=== PATIENT | male | born 1935 | race Caucasian/White ===

== ENCOUNTER → 2024-11-14 09:07 | Outpatient (REF) | payer MEDICARE, BC, SELFPAY ==
[2024-11-14 11:45] LABS: % Basophils 0.5 % (0-2); % Eosinophils 2.9 % (0-6); % Immature Granulocytes 1.8 % (0-0.5); % Lymphocytes 23.8 % (20.5-51.1); % Monocytes 12.5 % (1.7-9.3); % Neutrophils 58.5 % (42.2-75.2); Absolute Basophils 0.1 10^3/uL (0-0.2); Absolute Eosinophils 0.3 10^3/uL (0-0.7); Absolute Immature Granulocytes 0.2 10^3/uL (0-0.05); Absolute Lymphocytes 2.7 10^3/uL (1.2-3.4); Absolute Monocytes 1.4 10^3/uL (0.1-0.6); Absolute Neutrophils 6.7 10^3/uL (1.4-6.5); Hematocrit 44.3 % (39.0-52.0); Hemoglobin 14.2 g/dL (13.0-18.0); Mean Corp Hgb Conc. 32.1 g/dL (33.0-37.0); Mean Corpuscular Hgb 31.2 pg (27.0-31.0); Mean Corpuscular Volume 97.4 fL (80.0-94.0); Mean Platelet Volume 12.3 fL (7.4-10.4); Nucleated Red Blood Cells % 0 % (-); Platelet Count 188 10^3/uL (130-400); Red Blood Cell Count 4.55 10^6/uL (4.70-6.10); Red Cell Dist. Width 17.2 % (11.5-14.5); White Blood Cell Count 11.4 10^3/uL (4.8-10.8)
[2024-11-14 12:03] LABS: ALT (SGPT) < 10 U/L (0-50); AST (SGOT) 15 U/L (17-59); Albumin 3.6 g/dl (3.5-5.0); Alkaline Phosphatase 127 U/L (38-126); Blood Urea Nitrogen 66 mg/dl (9-20); Calcium 10.8 mg/dl (8.4-10.2); Carbon Dioxide 22 mmol/L (22-30); Chloride 107 mmol/L (98-107); Glucose 139 mg/dl (70-99); Magnesium 2.1 mg/dl (1.6-2.3); Potassium 4.8 mmol/L (3.5-5.1); Sodium 142 mmol/L (135-145); Total Bilirubin 1.5 mg/dl (0.2-1.3)
[2024-11-14 12:04] LABS: Vitamin D, 25-OH*** 68.3 ng/mL (30-80)
[2024-11-14 12:37] LABS: Vitamin B12 > 1000 pg/ml (239-931)
[2024-11-14 13:53] LABS: Glycohemoglobin (HgbA1c) 6.8 % (4.0-5.6)
== END ==
LOC: OLABN 09:07
PROVIDERS: ATTENDING PHYSICIAN Student in an Organized Health Care Education/Training Program
DX: D50.9 Iron deficiency anemia, unspecified (principal); N18.31 Chronic kidney disease, stage 3a; E11.40 Type 2 diabetes mellitus with diabetic neuropathy, unspecified; E55.9 Vitamin D deficiency, unspecified; E53.8 Deficiency of other specified B group vitamins; E11.21 Type 2 diabetes mellitus with diabetic nephropathy
CPT/HCPCS: 36415; 80053; 82306; 82607; 83036; 83735; 85025

== ENCOUNTER → 2024-11-15 17:00 | Outpatient (REF) | payer BC, OTHER, SELFPAY ==
[2024-11-16 13:09] LABS: Urine Albumin 3+ (Neg - Trace); Urine Bilirubin Negative (Negative); Urine Character Slightly Cloudy (Clear); Urine Color Yellow; Urine Glucose Negative (Negative); Urine Ketone Negative (Negative); Urine Leukocyte 3+ (Negative); Urine Nitrite Positive (Negative); Urine Occult Blood 4+ (Negative); Urine Specific Gravity 1.015 (<1.030); Urine Urobilinogen 1+ (Neg - 1+)
[2024-11-16 13:25] LABS: Urine Mucus Few; Urine Squamous Cell 16-20 /LPF (Few)
[2024-11-16 13:26] LABS: Urine Bacteria Moderate (Negative); Urine Calcium Oxalate Crystals Present; Urine White Cell 60-70 /HPF (0-5)
== END ==
LOC: OLABN 17:00
PROVIDERS: ATTENDING PHYSICIAN Student in an Organized Health Care Education/Training Program
DX: N39.0 Urinary tract infection, site not specified (principal)
CPT/HCPCS: 81003; 81015; 87077; 87086

== ENCOUNTER → 2024-11-19 09:27 | Outpatient (REF) | payer BC, OTHER, SELFPAY ==
[2024-11-19 10:01] LABS: % Basophils 0.4 % (0-2); % Eosinophils 3.9 % (0-6); % Immature Granulocytes 1.4 % (0-0.5); % Lymphocytes 30.3 % (20.5-51.1); % Monocytes 12.4 % (1.7-9.3); % Neutrophils 51.6 % (42.2-75.2); Absolute Eosinophils 0.4 10^3/uL (0-0.7); Absolute Immature Granulocytes 0.1 10^3/uL (0-0.05); Absolute Lymphocytes 2.9 10^3/uL (1.2-3.4); Absolute Monocytes 1.2 10^3/uL (0.1-0.6); Absolute Neutrophils 4.9 10^3/uL (1.4-6.5); Hemoglobin 14.4 g/dL (13.0-18.0); Mean Corp Hgb Conc. 32.7 g/dL (33.0-37.0); Mean Corpuscular Hgb 31.3 pg (27.0-31.0); Mean Corpuscular Volume 95.7 fL (80.0-94.0); Mean Platelet Volume 11.9 fL (7.4-10.4); Nucleated Red Blood Cells % 0 % (-); Platelet Count 154 10^3/uL (130-400); Red Cell Dist. Width 16.9 % (11.5-14.5); White Blood Cell Count 9.5 10^3/uL (4.8-10.8)
[2024-11-19 10:32] LABS: Blood Urea Nitrogen 72 mg/dl (9-20); Calcium 11.4 mg/dl (8.4-10.2); Carbon Dioxide 19 mmol/L (22-30); Chloride 107 mmol/L (98-107); Glucose 118 mg/dl (70-99); Potassium 4.9 mmol/L (3.5-5.1); Sodium 139 mmol/L (135-145); eGFR 17.39
== END ==
LOC: OLABN 09:27
PROVIDERS: ATTENDING PHYSICIAN Student in an Organized Health Care Education/Training Program
DX: D72.820 Lymphocytosis (symptomatic) (principal)
CPT/HCPCS: 36415; 80048; 85025

== ENCOUNTER → 2024-11-21 09:56 | Outpatient (REF) | payer OTHER, SELFPAY ==
[2024-11-21 11:55] LABS: Blood Urea Nitrogen 58 mg/dl (9-20); Calcium 10.3 mg/dl (8.4-10.2); Carbon Dioxide 19 mmol/L (22-30); Chloride 112 mmol/L (98-107); Glucose 98 mg/dl (70-99); Potassium 4.7 mmol/L (3.5-5.1); Sodium 140 mmol/L (135-145); eGFR 23.14
== END ==
LOC: OLABN 09:56
PROVIDERS: ATTENDING PHYSICIAN Student in an Organized Health Care Education/Training Program
DX: D72.820 Lymphocytosis (symptomatic) (principal)
CPT/HCPCS: 36415; 80048